=== PATIENT | female | born 1990 | race Caucasian/White ===

== ENCOUNTER 2021-09-28 13:26 | Emergency (ER) | payer MEDICAID ==
[~2021-09-28] VITALS: Ht 154.9 cm; Wt 56.7 kg
[2021-09-28 13:26] VITALS: BP_SYST 101
[2021-09-28] MEDS ORDERED: PRED20TA PO (14:20)
[2021-09-28] MEDS ORDERED: BEN50 PO (14:20)
[2021-09-28 14:42] VITALS: BP_SYST 101
== END 2021-09-28 14:50 | disposition home or self-care (01) ==
LOC: SED 13:26
DX: L50.9 Urticaria, unspecified (principal); Z79.899 Other long term (current) drug therapy
CPT/HCPCS: 99283

== ENCOUNTER 2022-03-02 15:53 | Emergency (ER) | payer SELFPAY ==
[~2022-03-02] VITALS: Ht 157.5 cm; Wt 57.6 kg
[~2022-03-02 15:53] MED LIST: BEN50 PO; PRED20TA PO
[2022-03-02 16:05] VITALS: BP_SYST 110
--- NOTE | 2022-03-02 16:05 | NUR ---
Patient to ER bed 6 to gown for evaluation. Side rails up.
--- NOTE | 2022-03-02 16:24 | NUR ---
ER Dr. SENIOR at bedside examining patient.
--- NOTE | 2022-03-02 16:30 | NUR ---
PATIENT AAOX4 FROM HOME C/O FEVER HIGH 104, CHILLS, AND SORE THROAT. STATING HAVING IT FOR ACOUPLE DAYS. PATIENT STATED SHE HAS NOT GONE OUT ANYWHERE. NO ONE AT HOME IS SICK. IS WORRIED IS COULD POTENTIALLY BE FROM CANCER. GETTING SCREENED FOR BREAST CA TOMORROW. DENIES ANY PAIN.
[2022-03-02 17:17] LABS: STREPTOCOCCUS A SCREEN (RAPID) NEGATIVE (NEGATIVE)
--- NOTE | 2022-03-02 18:11 | NUR ---
PT RESTING AT THIS TIME. DENIES ANY PAIN. VSS.
[2022-03-02 18:51] VITALS: BP_SYST 123
--- NOTE | 2022-03-02 18:52 | NUR ---
Patient given written and verbal discharge instructions and verbalizes understanding. Dr. Maryann DUNHAM MD discussed with patient the results and treatment provided. Patient in stable condition. ID arm band removed. Patient educated on pain management and to follow up with PMD. Pain Scale 0/10 Opportunity for questions provided and answered. Medication side effect fact sheet provided.
== END 2022-03-02 18:52 | disposition home or self-care (01) ==
LOC: SED 15:53
DX: B27.90 Infectious mononucleosis, unspecified without complication (principal); Z79.899 Other long term (current) drug therapy; Z20.822 Contact with and (suspected) exposure to COVID-19
CPT/HCPCS: 36415; 86308-TC; 86403; 87081; 99283